=== PATIENT | male | born 1960 | race American Indian/Alaskan Native ===

== ENCOUNTER 2021-08-13 11:07 | Inpatient (IN) | payer SELFPAY ==
[2021-08-13] MEDS ORDERED: dilTIAZem 25 MG/5 ML INJ IV ONE (11:35)
--- NOTE | 2021-08-13 11:45 | Emergency Department Report ---
ED Palpitations HPI - General Chief Complaint: Arrhythmia/Palpitations Stated Complaint: AFIB Time Seen by Provider: 08/13/21 11:24 Source: patient Mode of arrival: Ambulatory Limitations: No Limitations - History of Present Illness Initial Comments: 61-year-old male with history of hypertension who presented with palpitation associated with shortness of breath that been intermittent for the last 1 week. Patient has history of hypertension and currently taking his medication faithfully. Patient denies any chest pain. No cough, fever or chills reported. Walking from one room to the other worsening pain. Patient denies any heat or cold intolerance. Patient also mentioned that is a survivor of non-Hodgkin's lymphoma. No other modifying or associated factors reported. - Related Data Home Medications Medication Instructions Recorded Confirmed Last Taken amLODIPine [Norvasc] 10 mg PO DAILY 08/13/21 08/13/21 08/13/21 Allergies Allergy/AdvReac Type Severity Reaction Status Date / Time No Known Allergies Allergy Unverified 08/13/21 11:16 ED Review of Systems ROS: Stated complaint: AFIB Other details as noted in HPI Comment: All other systems reviewed and negative Cardiovascular: palpitations, dyspnea on exertion. denies: chest pain, syncope Endocrine: denies: excessive sweating, flushing, intolerance to cold, intolerance to heat Psychiatric: denies: anxiety ED Past Medical Hx - Past Medical History Previous Medical History?: Yes Hx Hypertension: Yes Hx of Cancer: Yes ([id number] Lymphoma) Additional medical history: sarcoidosis - Surgical History Past Surgical History?: Yes Additional Surgical History: L chest port - Medications Home Medications: Home Medications Medication Instructions Recorded Confirmed Last Taken Type amLODIPine [Norvasc] 10 mg PO DAILY 08/13/21 08/13/21 08/13/21 History ED Physical Exam - General Limitations: No Limitations General appearance: alert, in no apparent distress - Head Head exam: Present: normal inspection - Eye Eye exam: Present: normal appearance Pupils: Present: normal accommodation - ENT ENT exam: Present: normal exam, normal orophraynx, mucous membranes moist - Neck Neck exam: Present: normal inspection, full ROM. Absent: tenderness - Respiratory Respiratory exam: Present: normal lung sounds bilaterally. Absent: respiratory distress - Cardiovascular Cardiovascular Exam: Present: tachycardia, irregular rhythm - GI/Abdominal GI/Abdominal exam: Present: soft, normal bowel sounds. Absent: distended, tenderness - Extremities Exam Extremities exam: Present: normal inspection, full ROM, normal capillary refill. Absent: tenderness - Back Exam Back exam: Present: normal inspection, full ROM - Neurological Exam Neurological exam: Present: alert, oriented X3. Absent: altered - Psychiatric Psychiatric exam: Present: normal affect, normal mood - Skin Skin exam: Present: warm, intact, normal color. Absent: rash ED Course Vital Signs 08/13/21 08/13/21 08/13/21 11:13 11:37 11:42 Temperature 98.3 F Pulse Rate 87 129 H 153 H Respiratory 18 24 Rate Blood Pressure 129/86 Blood Pressure 113/74 [Right] O2 Sat by Pulse 88 96 Oximetry 08/13/21 08/13/21 08/13/21 11:46 11:58 12:00 Temperature Pulse Rate 129 H 108 H Respiratory 22 22 16 Rate Blood Pressure 129/86 120/74 Blood Pressure [Right] O2 Sat by Pulse 95 96 97 Oximetry 08/13/21 08/13/21 08/13/21 12:16 12:30 12:46 Temperature Pulse Rate 112 H 126 H 132 H Respiratory 21 26 H 16 Rate Blood Pressure 133/84 129/88 120/92 Blood Pressure [Right] O2 Sat by Pulse 95 92 92 Oximetry 08/13/21 08/13/21 08/13/21 13:00 13:16 13:30 Temperature Pulse Rate 138 H 125 H 110 H Respiratory 23 22 16 Rate Blood Pressure 124/91 124/91 117/91 Blood Pressure [Right] O2 Sat by Pulse 94 95 94 Oximetry - Reevaluation(s) Reevaluation #1: 08/13/21 11:43 Patient here with palpitation and noted to be in A. fib that is likely been going on intermittently for about a week. We will go ahead and tried nonpharmacological means such as Valsalva. With no success we will go ahead and give Cardizem 20 mg bolus and started drip to stabilize the heart rate. Will order routine cardiac labs including troponin, chest x-ray, CBC, CMP, and UA for any infectious process or electrolyte abnormality. We will also order thyroid profile. Patient given IV fluids 1 L bolus for hydration. Reevaluation #2: 08/13/21 11:46 Continue dialysis new atrial fibrillation for this patient and unsure how long this has been going on we will have this patient considered for admission for further complete work-up and further evaluation and treatment. 08/13/21 12:57 Patient heart rate got better with bolus of Cardizem and the drip is now running in the low 112 teens--I consulted [facility] and spoke with Fadi who suggested admitting patient to hospitalist and have them consulted. I did call Dr. Burns who accepts patient for further evaluation and treatment. ED Medical Decision Making - Lab Data Result diagrams: 08/13/21 11:45 08/13/21 11:45 - EKG Data -: EKG Interpreted by Me Rate: tachycardia - EKG Data Interpretation: nonspecific ST-T wave darryl, other (Atrial fibrillation at a rate of 135 bpm) - Medical Decision Making Atrial fibrillation see progress note for details - Differential Diagnosis Cardiac arrhythmia, hyperthyroidism, hypothyroidism Critical Care Time: Yes (30) Critical care time in (mins) excluding proc time.: 60 Critical care attestation.: If time is entered above; I have spent that time in minutes in the direct care of this critically ill patient, excluding procedure time. This patient came with arrhythmia noted to be in A. fib and was given Cardizem 20 mg and started on Cardizem IV piggyback drip and see progress note for details Critical Care Time: 60 ED Disposition Clinical Impression: Atrial fibrillation Qualifiers: Atrial fibrillation type: unspecified Qualified Code(s): I48.91 - Unspecified atrial fibrillation Disposition: 09 ADMITTED INPATIENT Is pt being admited?: Yes Does the pt Need Aspirin: No Condition: Stable
[2021-08-13] MEDS: dilTIAZem/D5W 100 MG/100 ML BAG IV SCH ×2 (11:46→17:35)
--- NOTE | 2021-08-13 12:18 | XRay Report ---
CHEST 1 VIEW INDICATION: a-fib. COMPARISON: None FINDINGS: Support devices: A left IJ [id number] terminates in the left brachiocephalic vein. Heart: Borderline to mild cardiomegaly Lungs/Pleura: Mild pulmonary venous congestion is suspected. Small right pleural effusion is identifi ed. No pneumothorax. Additional findings: None. IMPRESSION: Mild CHF is suspected. Signer Name: Curly Liz Jr, MD Signed: 08/13/2021 12:14 PM Workstation Name: [id number]
[2021-08-13 12:40] LABS: Alanine Aminotransferase 24 units/L (7-56); Albumin 4.1 g/dL (3.9-5); BUN/Creatinine Ratio 17; Blood Urea Nitrogen 15 mg/dL (9-20); Calcium 8.4 mg/dL (8.4-10.2); Hemolysis Index 55
--- NOTE | 2021-08-13 12:57 | History and Physical Report ---
History of Present Illness Chief complaint: My heart is beating fast and is hard to breathe History of present illness: 61 YO Male with HTN, NHL, Sarcoidosis, Obesity Hypoventilation Syndrome presents to ED for evaluation. Patient reports "it is hard to breathe and my heart is beating fast". Patient states that he has experienced the aforementioned symptoms over the past 1 week with worsening symptoms over the past 3 days. Patient acknowledges chest palpitations, shortness of breath, decreased exercise tolerance, dyspnea on exertion as well as dyspnea at rest. Patient transported to [facility] via private vehicle for further care and evaluation of the aforementioned symptoms. The patient was seen and evaluated in the emergency department. All lab and imaging studies reviewed. Patient found to have new onset atrial fibrillation on EKG with rapid ventricular response as well as clinical symptoms consistent with CHF decompensation. Patient admitted to telemetry due to increased risk of worsening symptoms. Cardiology team consulted in ED. Patient initiated on therapeutic anticoagulation in the emergency department. Patient denies fever, chills, chest pain, productive cough, skin rash, recent contact, known exposure to COVID-19. No prior admission for review. No medication listed at time of admission for reconciliation. Advanced care planning conducted in ED. Past History Past Medical History: cancer, hypertension, other (See HPI) Past Surgical History: No surgical history, Other (Reviewed) Social history: . denies: smoking, alcohol abuse, prescription drug abuse Family history: hypertension Medications and Allergies Allergies Allergy/AdvReac Type Severity Reaction Status Date / Time No Known Allergies Allergy Unverified 08/13/21 11:16 Home Medications Medication Instructions Recorded Confirmed Last Taken Type amLODIPine [Norvasc] 10 mg PO DAILY 08/13/21 08/13/21 08/13/21 History Active Meds: Active Medications Diltiazem HCl (Cardizem/D5w 100mg/100ml) 100 mg in 100 mls @ 5 mls/hr IV TITR AMMY; Protocol Last Titration: 08/13/21 12:35 Dose: 15 mg/hr, 15 mls/hr Review of Systems Constitutional: no weight loss, no weight gain, no fever, no chills Ears, nose, mouth and throat: no ear pain, no ear discharge, no decreased hearing, no nasal discharge Cardiovascular: palpitations, rapid/irregular heart beat, shortness of breath, dyspnea on exertion, decreased exercise tolerance Respiratory: no cough, no cough with sputum, no excessive sputum Gastrointestinal: no abdominal pain, no nausea, no vomiting, no diarrhea, no constipation Genitourinary Male: no hematuria, no flank pain, no discharge, no urinary frequency, no urinary hesitancy Rectal: no pain, no incontinence, no bleeding Musculoskeletal: no neck stiffness, no neck pain, no arm numbness/tingling, no low back pain Integumentary: no rash, no pruritis, no sores, no jaundice Neurological: no head injury, no transient paralysis, no parathesias, no numbness, no tingling, no syncope Psychiatric: no anxiety, no memory loss, no sleep disturbances, no hypersomnia, no change in appetite, no change in libido, no suicidal ideation Endocrine: no cold intolerance, no excessive thirst, no polyuria, no nocturia Hematologic/Lymphatic: no easy bruising, no easy bleeding Allergic/Immunologic: no urticaria, no allergic rhinitis, no wheezing Exam - Constitutional Vitals: Temp Pulse Resp BP Pulse Ox 98.3 F 126 H 26 H 129/88 92 08/13/21 11:13 08/13/21 12:30 08/13/21 12:30 08/13/21 12:30 08/13/21 12:30 General appearance: Present: mild distress, obese - EENT Eyes: Present: PERRL ENT: hearing intact, clear oral mucosa - Neck Neck: Present: supple, normal ROM - Respiratory Respiratory effort: normal Respiratory: bilateral: CTA - Cardiovascular Rhythm: irregularly irregular Heart Sounds: Present: S1 & S2. Absent: rub, click - Extremities Extremities: pulses symmetrical, No edema Peripheral Pulses: within normal limits - Abdominal General gastrointestinal: Present: soft, non-tender, non-distended, normal bowel sounds Male genitourinary: Present: normal - Integumentary Integumentary: Present: clear, warm, dry - Musculoskeletal Musculoskeletal: gait normal, strength equal bilaterally - Psychiatric Psychiatric: appropriate mood/affect, intact judgment & insight - Neurologic Neurologic: CNII-XII intact, moves all extremities HEART Score - HEART Score Troponin: Troponin T < 0.010 ng/mL (0.00-0.029) 08/13/21 11:45 Results - Labs CBC & Chem 7: 08/13/21 13:47 08/13/21 13:47 Assessment and Plan - Patient Problems (1) CHF (congestive heart failure) Current Visit: Yes Status: Acute Qualifiers: Heart failure type: systolic Heart failure chronicity: acute Qualified Code(s): I50.21 - Acute systolic (congestive) heart failure Plan to address problem: Strict I's/O, monitor urine output every shift, daily weight, afterload reduction, blood pressure control, cardiology team consulted in ED, thyroid panel, magnesium level, BNP, echocardiogram ordered and pending at time of admission. (2) Atrial fibrillation with RVR Current Visit: Yes Status: Acute Plan to address problem: Rate control, therapeutic anticoagulation, cardiology team consulted. (3) Hypertension Current Visit: Yes Status: Acute Qualifiers: Hypertension type: primary hypertension Qualified Code(s): I10 - Essential (primary) hypertension Plan to address problem: Monitor blood pressure every shift, continue medical management. (4) Sarcoidosis Current Visit: Yes Status: Acute Plan to address problem: Outpatient rheumatology follow-up, supportive care. (5) Non Hodgkin's lymphoma Current Visit: Yes Status: Acute Plan to address problem: No acute exacerbation at this time. Outpatient oncology follow-up. (6) Obesity hypoventilation syndrome Current Visit: Yes Status: Acute Plan to address problem: Balanced diet, increase physical activity discharge, outpatient pulmonary follow-up for sleep study. (7) DVT prophylaxis Current Visit: Yes Status: Acute Plan to address problem: SCD to bilateral lower extremities while in bed, continue therapeutic anticoagulation. (8) Advance care planning Current Visit: Yes Status: Acute Plan to address problem: Disease education done, care plan discussed, diagnoses discussed, prognosis discussed, patient is full code. Patient knowledges understanding and agreement with care plan, +30 minutes.
[2021-08-13] MEDS ORDERED: HEPARIN 10,000 UNITS/10 ML VIAL IV PRN (13:01)
[2021-08-13 14:14] LABS: Basophils % (Auto) 0.8 % (0.0-1.8); Eosinophils # (Auto) 0.1 K/mm3 (0.0-0.4); Eosinophils % (Auto) 2.6 % (0.0-4.3); Hematocrit 43.3 % (35.5-45.6); Lymphocytes # (Auto) 0.8 K/mm3 (1.2-5.4); Lymphocytes % (Auto) 21.2 % (13.4-35.0); Mean Corpuscular HGB Conc 32 % (32-34); Mean Corpuscular Volume 86 fl (84-94); Monocytes # (Auto) 0.4 K/mm3 (0.0-0.8); Monocytes % (Auto) 10.2 % (0.0-7.3); Platelet Count 162 K/mm3 (140-440); Red Blood Count 5.02 M/mm3 (3.65-5.03); Red Cell Distribution Width 15.7 % (13.2-15.2)
[2021-08-13 14:28] LABS: INR 1.03 (0.87-1.13); Partial Thromboplastin Time 29.4 Sec. (24.2-36.6)
[2021-08-13 14:29] LABS: INR 1.05 (0.87-1.13); Partial Thromboplastin Time 29.8 Sec. (24.2-36.6)
[2021-08-13] MEDS ORDERED: APIXABAN 5 MG TAB PO SCH (15:00)
[2021-08-13] MEDS: ENOXAPARIN 100 MG/1 ML INJ SUB-Q SCH ×2 (15:53→22:47)
--- NOTE | 2021-08-13 16:22 | Consultation ---
History of Present Illness Consult date: 08/13/21 Requesting physician: ZHANNA PARISI History of present illness: Patient is a 61-year-old male with past medical history of hypertension, sleep apnea, history of sarcoidosis, and history of B-cell lymphoma s/p chemo presents to the ED 2 5 with a complaint of shortness of breath which has been occurring since February however for the last month and a half patient reports that his symptoms have progressively worsened. Patient's daughter is at bedside who confirms that she has noticed that patient's respiratory status has worsened since February. Both patient and daughter confirm that over the last month they have noticed that patient has become more dyspneic on exertion. Patient also reports orthopnea, dyspnea on exertion, and bilateral lower extremity edema. In the ED patient was found to be in A. fib with RVR with rate into the 130s. Patient was started on Cardizem drip. Patient denies any complaints of chest pain, palpitations, nausea, vomiting, lightheadedness, or diaphoresis. Patient is previously unknown to our practice. Cardiology is consulted for A. fib with RVR. Past History Past Medical History: cancer, hypertension, sarcoidosis Past Surgical History: Other (Patient reports brain surgery to relieve pressure) Social history: smoking (Former smoker) Family history: cancer, diabetes Medications and Allergies Allergies Allergy/AdvReac Type Severity Reaction Status Date / Time No Known Allergies Allergy Unverified 08/13/21 11:16 Home Medications Medication Instructions Recorded Confirmed Last Taken Type amLODIPine [Norvasc] 10 mg PO DAILY 08/13/21 08/13/21 08/13/21 History Active Meds: Active Medications Enoxaparin Sodium (Enoxaparin 100 Mg/1 Ml Inj) 100 mg SUB-Q BID AMMY; Protocol Last Admin: 08/13/21 15:53 Dose: 100 mg Diltiazem HCl (Cardizem/D5w 100mg/100ml) 100 mg in 100 mls @ 5 mls/hr IV TITR AMMY; Protocol Last Titration: 08/13/21 12:35 Dose: 15 mg/hr, 15 mls/hr Review of Systems Constitutional: no weight loss, no weight gain, no fever, no chills Ears, nose, mouth and throat: no nasal congestion, no nasal discharge, no sinus pressure, no sinus pain Cardiovascular: orthopnea, edema, shortness of breath, dyspnea on exertion, no chest pain, no palpitations Respiratory: shortness of breath, dyspnea on exertion, no cough, no cough with sputum Gastrointestinal: no abdominal pain, no nausea, no vomiting, no diarrhea Musculoskeletal: no neck pain, no leg numbness/tingling, no redness of joints Integumentary: no rash, no pruritis, no redness Neurological: no head injury, no transient paralysis Psychiatric: no anxiety, no memory loss Endocrine: no cold intolerance, no heat intolerance Hematologic/Lymphatic: no easy bruising, no easy bleeding Physical Examination Vital Signs Temp Pulse Resp BP Pulse Ox 98.3 F 87 18 113/74 88 08/13/21 11:13 08/13/21 11:13 08/13/21 11:13 08/13/21 11:13 08/13/21 11:13 General appearance: no acute distress HEENT: Positive: Normocephaly Neck: Positive: trachea midline Cardiac: Positive: irregularly irregular Lungs: Positive: Rales, Other Neuro: Positive: Grossly Intact Abdomen: Positive: Soft Skin: Negative: Rash, Suspicious Lesions, Ulceration Extremities: Present: upper extr. pulses, edema Results 08/13/21 13:47 08/13/21 13:47 Cardiac Enzymes 08/13/21 Range/Units 11:45 AST 30 (5-40) units/L Coagulation 08/13/21 08/13/21 Range/Units 13:47 13:47 PT 14.7 14.9 (12.2-14.9) Sec. INR 1.03 1.05 (0.87-1.13) APTT 29.4 29.8 (24.2-36.6) Sec. CBC 08/13/21 08/13/21 Range/Units 11:45 13:47 WBC 3.8 L (4.5-11.0) K/mm3 RBC 5.02 (3.65-5.03) M/mm3 Hgb 14.0 (11.8-15.2) gm/dl Hct 43.3 (35.5-45.6) % Plt Count Not Reportable 162 Lymph # (Auto) 0.8 L (1.2-5.4) K/mm3 [place] # (Auto) 0.4 (0.0-0.8) K/mm3 Eos # (Auto) 0.1 (0.0-0.4) K/mm3 Baso # (Auto) 0.0 (0.0-0.1) K/mm3 Comprehensive Metabolic Panel 08/13/21 08/13/21 Range/Units 11:45 13:47 Sodium 141 (137-145) mmol/L Potassium 3.8 (3.6-5.0) mmol/L Chloride 99.5 (98-107) mmol/L Carbon Dioxide 31 H (22-30) mmol/L BUN 15 (9-20) mg/dL Creatinine 0.9 0.9 (0.8-1.3) mg/dL Glucose 118 H (75-100) mg/dL Calcium 8.4 (8.4-10.2) mg/dL AST 30 (5-40) units/L ALT 24 (7-56) units/L Alkaline Phosphatase 89 (35-129) units/L Total Protein 6.5 (6.3-8.2) g/dL Albumin 4.1 (3.9-5) g/dL - Imaging and Cardiology Echo: pending EKG interpretations - Telemetry EKG Rhythm: Atrial Fibrillation - EKG Supraventricular dysrhythmia: atrial fibrillation Assessment and Plan Patient is a 61-year-old male with past medical history of hypertension and B- cell lymphoma presents to the ED today with a complaint of shortness of breath which has been occurring since February however for the last month and a half patient reports that his symptoms have progressively worsened and found to be in A. fib with RVR New onset A. fib with RVR Acute respiratory failure-currently on nasal cannula Hypertension History of B-cell lymphoma History of sarcoidosis Plan: EKG shows A. fib with RVR no acute ischemic changes. Troponin negative x1. Patient denies any complaint of chest pain nausea, vomiting or diaphoresis Agree with Cardizem drip for rate control Anticoagulate with Lovenox BNP noted to be elevated, chest x-ray shows mild CHF, patient reports orthopnea, and patient has bilateral lower extremity edema. Will initiate light diuresis with Lasix 20 mg IV twice daily. Repeat BMP in the a.m. strict I's and O's Echo pending Discussed with patient and patient's daughter plan of care. Both patient and daughter verbalized understanding acknowledgment Patient conjunction with Dr. Joe who agrees with this plan of care - Patient Problems (1) Hypertension Current Visit: Yes Status: Acute (2) CHF (congestive heart failure) Current Visit: Yes Status: Acute (3) Atrial fibrillation Current Visit: No Status: Acute Qualifiers: Atrial fibrillation type: unspecified Qualified Code(s): I48.91 - Unspecified atrial fibrillation
[2021-08-13] MEDS ORDERED: ACETAMINOPHEN 325 MG TAB PO PRN (17:29)
[2021-08-13] MEDS ORDERED: HYDROmorphone 1 MG/1 ML INJ IV PRN (17:29)
[2021-08-13] MEDS ORDERED: ONDANSETRON 4 MG/2 ML INJ IV PRN (17:29)
[2021-08-13] MEDS ORDERED: ALBUTEROL 2.5 MG/3 ML NEBU IH PRN (17:29)
[2021-08-13] MEDS ORDERED: oxyCODONE /ACETAMINOPHEN 5-325MG TAB PO PRN (17:29)
[2021-08-13] MEDS: FUROSEMIDE 20 MG/2 ML INJ IV SCH (17:31)
[2021-08-13] MEDS: AMIODARONE 900 MG in DEXTROSE 5% IN WATER 482 ML IV SCH (18:54)
[2021-08-13 20:16] LABS: Bacteria,Urine 1+ /HPF (Negative); Bilirubin,Urine NEG (Negative); Blood,Urine SM (Negative); Color,Urine Straw (Yellow); Protein,Urine <15 mg/dL mg/dL (Negative); Urobilinogen,Urine < 2.0 mg/dL (<2.0); WBC,Urine < 1.0 /HPF (0.0-6.0)
[2021-08-13] MEDS: FAMOTIDINE 20 MG TAB PO SCH (22:59)
[2021-08-14] MEDS: FUROSEMIDE 20 MG/2 ML INJ IV SCH ×3 (00:13→21:32)
[2021-08-14 05:49] LABS: BUN/Creatinine Ratio 14; Blood Urea Nitrogen 14 mg/dL (9-20); Calcium 8.6 mg/dL (8.4-10.2); Hemolysis Index 19
--- NOTE | 2021-08-14 09:22 | Progress Note ---
Assessment and Plan Assessment and plan: 61 YO Male with HTN, NHL, Sarcoidosis, Obesity Hypoventilation Syndrome presents to ED for evaluation. Patient reports "it is hard to breathe and my heart is beating fast" progressively worse since weeks. Patient acknowledges shortness of breath, decreased exercise tolerance, dyspnea on exertion as well as dyspnea at rest. The patient was seen and evaluated in the emergency department. Patient found to have new onset atrial fibrillation on EKG with rapid ventricular response as well as clinical symptoms consistent with CHF decompensation. Cardiology team consulted in ED. Patient initiated on therapeutic anticoagulation in the emergency department. Patient denies fever, chills, chest pain, productive cough, skin rash, recent contact, known exposure to COVID-19. No prior admission for review. (1) acute systolic CHF (congestive heart failure) Current Visit: Yes Status: Acute Qualifiers: Heart failure type: systolic Heart failure chronicity: acute Qualified Code(s): I50.21 - Acute systolic (congestive) heart failure Plan to address problem: BNP 1153 and chest x-ray suggestive of CHF. Strict I's/O, monitor urine output every shift, daily weight, afterload reduction, blood pressure control, cardiology team consulted in ED, thyroid panel, magnesium level, BNP, echocardiogram ordered and pending at time of admission. Cardiology evaluation is in progress. On IV Lasix and CHF regimen as per cardiology. Echo 08/13/2021-EF 20 to 25%. LV severely dilated. Moderate to severe concentric LVH. Left atrium severely dilated. Right ventricular systolic function is normal (2) Atrial fibrillation with RVR Current Visit: Yes Status: Acute Plan to address problem: Rate control, therapeutic anticoagulation, cardiology team consulted. Patient has been compliant with Cardizem and atenolol. (3) Hypertension Current Visit: Yes Status: Acute Qualifiers: Hypertension type: primary hypertension Qualified Code(s): I10 - Essential (primary) hypertension Plan to address problem: Monitor blood pressure every shift, continue medical management. (4) remote history of sarcoidosis Current Visit: Yes Status: Acute Plan to address problem: Not active since years per patient. Outpatient rheumatology follow-up, supportive care. (5) Non Hodgkin's lymphoma Current Visit: Yes Status: Acute Plan to address problem: No acute exacerbation at this time. Outpatient oncology follow-up. (6) morbid obesity at high risk for JEFFREY Current Visit: Yes Status: Acute Plan to address problem: Balanced diet, increase physical activity discharge, outpatient pulmonary follow-up for sleep study. (7) DVT prophylaxis Current Visit: Yes Status: Acute Plan to address problem: SCD to bilateral lower extremities while in bed, continue therapeutic anticoag ulation. (8) Advance care planning Current Visit: Yes Status: Acute Plan to address problem: Disease education done, care plan discussed, diagnoses discussed, prognosis discussed, patient is full code. Patient knowledges understanding and agreement with care plan, +30 minutes. Discussed with the patient History Interval history: Patient is alert and oriented and not in acute distress currently. A. fib/RVR being controlled with the Cardizem and amiodarone by cardiology. Patient reports breathing better since admitted. Not aware of palpitations. No chest pains. No fever or chills. No significant leg edema. He appears to be at risk for JEFFREY which was not screened for. Hospitalist Physical - Constitutional Vitals: Temp Pulse Resp BP Pulse Ox 98.4 F 77 19 154/124 99 08/14/21 08:14 08/14/21 08:14 08/14/21 08:14 08/14/21 08:14 08/14/21 08:25 General appearance: Present: mild distress, obese (Morbidly obese) - EENT Eyes: Present: PERRL, EOM intact ENT: clear oral mucosa - Neck Neck: Present: supple, other (No JVD.) - Respiratory Respiratory effort: normal Respiratory: bilateral: rales - Cardiovascular Rhythm: irregularly irregular - Extremities Extremities: No edema - Abdominal General gastrointestinal: soft, non-tender, other (Obese and protuberant) - Integumentary Integumentary: Absent: rash - Psychiatric Psychiatric: appropriate mood/affect - Neurologic Neurologic: no focal deficits, moves all extremities HEART Score - HEART Score Troponin: Troponin T < 0.010 ng/mL (0.00-0.029) 08/13/21 11:45 Results - Labs CBC & Chem 7: 08/13/21 13:47 08/14/21 05:17 Labs: Laboratory Last Values WBC 3.8 K/mm3 (4.5-11.0) L 08/13/21 13:47 RBC 5.02 M/mm3 (3.65-5.03) 08/13/21 13:47 Hgb 14.0 gm/dl (11.8-15.2) 08/13/21 13:47 Hct 43.3 % (35.5-45.6) 08/13/21 13:47 MCV 86 fl (84-94) 08/13/21 13:47 MCH 28 pg (28-32) 08/13/21 13:47 MCHC 32 % (32-34) 08/13/21 13:47 RDW 15.7 % (13.2-15.2) H 08/13/21 13:47 Plt Count 162 K/mm3 (140-440) 08/13/21 13:47 Lymph % (Auto) 21.2 % (13.4-35.0) 08/13/21 13:47 [place] % (Auto) 10.2 % (0.0-7.3) H 08/13/21 13:47 Eos % (Auto) 2.6 % (0.0-4.3) 08/13/21 13:47 Baso % (Auto) 0.8 % (0.0-1.8) 08/13/21 13:47 Lymph # (Auto) 0.8 K/mm3 (1.2-5.4) L 08/13/21 13:47 [place] # (Auto) 0.4 K/mm3 (0.0-0.8) 08/13/21 13:47 Eos # (Auto) 0.1 K/mm3 (0.0-0.4) 08/13/21 13:47 Baso # (Auto) 0.0 K/mm3 (0.0-0.1) 08/13/21 13:47 Seg Neutrophils % 65.2 % (40.0-70.0) 08/13/21 13:47 Seg Neutrophils # 2.5 K/mm3 (1.8-7.7) 08/13/21 13:47 PT 14.7 Sec. (12.2-14.9) 08/13/21 13:47 PT 14.9 Sec. (12.2-14.9) 08/13/21 13:47 INR 1.03 (0.87-1.13) 08/13/21 13:47 INR 1.05 (0.87-1.13) 08/13/21 13:47 APTT 29.4 Sec. (24.2-36.6) 08/13/21 13:47 APTT 29.8 Sec. (24.2-36.6) 08/13/21 13:47 Sodium 144 mmol/L (137-145) 08/14/21 05:17 Potassium 3.9 mmol/L (3.6-5.0) 08/14/21 05:17 Chloride 100.3 mmol/L (98-107) 08/14/21 05:17 Carbon Dioxide 34 mmol/L (22-30) H 08/14/21 05:17 Anion Gap 14 mmol/L 08/14/21 05:17 BUN 14 mg/dL (9-20) 08/14/21 05:17 Creatinine 1.0 mg/dL (0.8-1.3) 08/14/21 05:17 Estimated GFR > 60 ml/min 08/14/21 05:17 BUN/Creatinine Ratio 14 % 08/14/21 05:17 Glucose 138 mg/dL (75-100) H 08/14/21 05:17 Calcium 8.6 mg/dL (8.4-10.2) 08/14/21 05:17 Magnesium 2.20 mg/dL (1.7-2.3) 08/13/21 15:58 Total Bilirubin 1.10 mg/dL (0.1-1.2) 08/13/21 11:45 AST 30 units/L (5-40) 08/13/21 11:45 ALT 24 units/L (7-56) 08/13/21 11:45 Alkaline Phosphatase 89 units/L (35-129) 08/13/21 11:45 Troponin T < 0.010 ng/mL (0.00-0.029) 08/13/21 11:45 NT-Pro-B Natriuret Pep 1153 pg/mL (0-900) H 08/13/21 11:45 Total Protein 6.5 g/dL (6.3-8.2) 08/13/21 11:45 Albumin 4.1 g/dL (3.9-5) 08/13/21 11:45 Albumin/Globulin Ratio 1.7 % 08/13/21 11:45 TSH 0.805 mlU/mL (0.270-4.200) 08/13/21 11:45 Urine Color Straw (Yellow) 08/13/21 19:05 Urine Turbidity Clear (Clear) 08/13/21 19:05 Urine pH 5.0 (5.0-7.0) 08/13/21 19:05 Ur Specific [place] 1.005 (1.003-1.030) 08/13/21 19:05 Urine Protein <15 mg/dl mg/dL (Negative) 08/13/21 19:05 Urine Glucose (UA) Neg mg/dL (Negative) 08/13/21 19:05 Urine Ketones Neg mg/dL (Negative) 08/13/21 19:05 Urine Blood Sm (Negative) 08/13/21 19:05 Urine Nitrite Neg (Negative) 08/13/21 19:05 Urine Bilirubin Neg (Negative) 08/13/21 19:05 Urine Urobilinogen < 2.0 mg/dL (<2.0) 08/13/21 19:05 Ur Leukocyte Esterase Neg (Negative) 08/13/21 19:05 Urine WBC (Auto) < 1.0 /HPF (0.0-6.0) 08/13/21 19:05 Urine RBC (Auto) 1.0 /HPF (0.0-6.0) 08/13/21 19:05 Urine Bacteria (Auto) 1+ /HPF (Negative) 08/13/21 19:05 Patrick/IV: Voiding Method Urinal Active Medications - Current Medications Current Medications: Generic Name Dose Route Start Last Admin Trade Name Freq PRN Reason Stop Dose Admin Acetaminophen 650 mg 08/13/21 17:29 Acetaminophen 325 Mg Tab PO Q4H PRN Pain MILD(1-3)/Fever >100.5/PARIKH Albuterol 2.5 mg 08/13/21 17:29 Albuterol 2.5 Mg/3 Ml Nebu IH Q4HRT PRN Shortness Of Breath Amlodipine Besylate 10 mg 08/14/21 10:00 Amlodipine 10 Mg Tab PO DAILY [facility] Enoxaparin Sodium 100 mg 08/13/21 16:00 08/13/21 22:47 Enoxaparin 100 Mg/1 Ml Inj SUB-Q Not Given BID [facility] Protocol Famotidine 20 mg 08/13/21 22:00 08/13/21 22:59 Famotidine 20 Mg Tab PO 20 mg BID [facility]MY Administration Furosemide 20 mg 08/13/21 17:00 08/14/21 00:13 Furosemide 20 Mg/2 Ml Inj IV Not Given BID [facility] Amiodarone HCl 900 mg/ 500 mls @ 33.333 mls/hr 08/13/21 19:00 08/14/21 03:15 Dextrose IV 0.5 mg/min DIRECT [facility]MY 16.667 mls/hr Titration Protocol 1 MG/MIN Ondansetron HCl 4 mg 08/13/21 17:29 Ondansetron 4 Mg/2 Ml Inj IV Q8H PRN Nausea And Vomiting Sodium Chloride 10 ml 08/13/21 22:00 08/13/21 22:59 Sodium Chloride 0.9% 10 Ml Flush Syringe IV 10 ml BID AMMY Administration Sodium Chloride 10 ml 08/13/21 17:29 Sodium Chloride 0.9% 10 Ml Flush Syringe IV PRN PRN LINE FLUSH
[2021-08-14] MEDS: ENOXAPARIN 100 MG/1 ML INJ SUB-Q SCH ×2 (11:23→21:32)
[2021-08-14] MEDS: FAMOTIDINE 20 MG TAB PO SCH ×2 (11:24→21:32)
[2021-08-14] MEDS: amLODIPine 10 MG TAB PO SCH (11:24)
[2021-08-14] MEDS ORDERED: AMIODARONE 150 MG in DEXTROSE 5% IN WATER 97 ML IV ONE (13:30)
[2021-08-14] MEDS: AMIODARONE 900 MG in DEXTROSE 5% IN WATER 482 ML IV SCH (13:44)
[2021-08-14] MEDS: METOPROLOL TARTRATE 25 MG TAB PO SCH ×2 (13:44→21:32)
--- NOTE | 2021-08-14 15:54 | Progress Note ---
Assessment and Plan Patient is a 61-year-old male with past medical history of hypertension and B- cell lymphoma presents to the ED today with a complaint of shortness of breath which has been occurring since February however for the last month and a half patient reports that his symptoms have progressively worsened and found to be in A. fib with RVR New onset A. fib with RVR Acute respiratory failure-currently on nasal cannula HFrEF Cardiomyopathy Hypertension History of B-cell lymphoma History of sarcoidosis Echo 08/13/2021-EF 20 to 25%. LV severely dilated. Moderate to severe concentric LVH. Left atrium severely dilated. Right ventricular systolic function is normal Plan: Patient remains chest pain-free Hospitalist converted patient to amiodarone drip yesterday evening. Patient remains in A. fib with RVR will initiate amiodarone bolus. Will also initiate metoprolol 25 mg p.o. 3 times daily Anticoagulated with Lovenox Continue light diuresis with Lasix 20 mg IV twice daily. Repeat BMP in the a.m. strict I's and O's Per conversation with patient patient reports that he recently had a long car ride while driving down to [place]. Will order Doppler studies to rule out DVT Spoke with hospitalist who wished to rule out DVT before ordering V/Q or CTA chest We will hold initiation of MANISH or ARB due to unclear blood pressure readings and new addition of metoprolol. Will add MANISH and ARB once BP and rate is controlled Due to newly diagnosed cardiomyopathy will eventually plan for ischemic eval on ce patient is rate controlled Patient conjunction with Dr. Joe who agrees with this plan of care - Patient Problems (1) Hypertension Current Visit: Yes Status: Acute (2) CHF (congestive heart failure) Current Visit: Yes Status: Acute Qualifiers: Heart failure type: systolic Heart failure chronicity: acute Qualified Code(s): I50.21 - Acute systolic (congestive) heart failure (3) Atrial fibrillation Current Visit: No Status: Inactive Qualifiers: Atrial fibrillation type: unspecified Qualified Code(s): I48.91 - Unspecified atrial fibrillation Subjective Date of service: 08/14/21 Principal diagnosis: A. fib with RVR Interval history: Patient resting in bed in no acute distress. Patient reports slight improvement in respiratory status Patient is a A. fib with RVR on monitor rate anywhere from 90s to 120s Objective Vital Signs Temp Pulse Pulse Resp BP BP Pulse Ox 08/14/21 12:04 114 H 22 94 08/14/21 12:00 98.0 F 78 18 133/82 90 08/14/21 08:25 99 08/14/21 08:14 98.4 F 77 19 154/124 97 08/14/21 07:30 83 L 08/14/21 07:05 114 H 08/14/21 04:10 98.2 F 71 18 135/103 93 08/14/21 02:20 121 H 08/14/21 00:39 69 17 94 08/14/21 00:26 98.5 F 65 16 118/70 87 08/13/21 22:05 98.2 F 69 20 111/77 93 08/13/21 21:15 99 H 18 123/76 97 08/13/21 21:01 99 H 11 L 123/76 94 08/13/21 20:45 119 H 23 112/72 93 08/13/21 20:31 128 H 19 112/72 95 08/13/21 20:15 92 H 22 131/91 96 08/13/21 20:01 103 H 18 131/91 95 08/13/21 19:45 91 H 19 125/87 100 08/13/21 19:31 92 H 17 125/87 98 08/13/21 19:19 94 08/13/21 19:15 105 H 19 132/84 97 08/13/21 19:01 132/84 94 08/13/21 18:45 92 H 19 121/78 96 08/13/21 18:31 104 H 19 121/87 96 08/13/21 18:15 87 18 125/82 96 08/13/21 18:01 97 H 20 124/90 97 08/13/21 17:47 92 08/13/21 17:30 135 H 20 130/78 08/13/21 16:46 113 H 27 H 139/87 91 08/13/21 16:30 117 H 19 118/85 91 08/13/21 16:16 106 H 25 H 110/84 92 08/13/21 16:00 77 23 110/84 96 - Physical Examination General: No Apparent Distress HEENT: Positive: Normocephaly Neck: Positive: trachea midline Cardiac: Positive: irregularly irregular, Tachycardia Lungs: Positive: Rales Neuro: Positive: Grossly Intact Abdomen: Positive: Soft Skin: Negative: Rash, Suspicious Lesions, Ulceration Extremities: Present: upper extr. pulses, edema - Labs and Meds Comprehensive Metabolic Panel 08/14/21 Range/Units 05:17 Sodium 144 (137-145) mmol/L Potassium 3.9 (3.6-5.0) mmol/L Chloride 100.3 (98-107) mmol/L Carbon Dioxide 34 H (22-30) mmol/L BUN 14 (9-20) mg/dL Creatinine 1.0 (0.8-1.3) mg/dL Glucose 138 H (75-100) mg/dL Calcium 8.6 (8.4-10.2) mg/dL - Imaging and Cardiology Echo: report reviewed - Telemetry EKG Rhythm: Atrial Fibrillation - EKG Supraventricular dysrhythmia: atrial fibrillation
--- NOTE | 2021-08-14 18:06 | Vascular Lab Report ---
DUPLEX DOPPLER LOWER EXTREMITY VEINS, BILATERAL INDICATION / CLINICAL INFORMATION: r/o DVT. TECHNIQUE: Duplex doppler imaging was performed through the veins of both lower extremities using venous claudia dagoberto and other maneuvers. COMPARISON: None available. FINDINGS: RIGHT COMMON FEMORAL VEIN: Negative. RIGHT FEMORAL VEIN: Negative. RIGHT POPLITEAL VEIN: Negative. RIGHT CALF VEINS: Negative. LEFT COMMON FEMORAL VEIN: Negative. LEFT FEMORAL VEIN: Negative. LEFT POPLITEAL VEIN: Negative. LEFT CALF VEINS: Negative. ADDITIONAL FINDINGS: None. IMPRESSION: 1. No sonographic evidence for DVT in either lower extremity. Signer Name: Gruu Negrete MD Signed: 08/14/2021 6:02 PM Workstation Name: [id number]
[2021-08-15] MEDS ORDERED: ALPRAZolam 0.25 MG TAB PO ONE (04:58)
[2021-08-15] MEDS: METOPROLOL TARTRATE 25 MG TAB PO SCH ×3 (05:07→21:50)
[2021-08-15 08:30] LABS: Mean Corpuscular HGB Conc 31 % (32-34); Mean Corpuscular Volume 88 fl (84-94); Platelet Count 194 K/mm3 (140-440); Red Blood Count 5.12 M/mm3 (3.65-5.03); Red Cell Distribution Width 15.8 % (13.2-15.2)
[2021-08-15 08:57] LABS: BUN/Creatinine Ratio 14; Blood Urea Nitrogen 13 mg/dL (9-20); Calcium 8.1 mg/dL (8.4-10.2); Hemolysis Index 25
[2021-08-15] MEDS: FUROSEMIDE 20 MG/2 ML INJ IV SCH ×2 (11:22→21:50)
[2021-08-15] MEDS: FAMOTIDINE 20 MG TAB PO SCH ×2 (11:22→21:50)
[2021-08-15] MEDS: amLODIPine 10 MG TAB PO SCH (11:22)
[2021-08-15] MEDS: ENOXAPARIN 100 MG/1 ML INJ SUB-Q SCH (11:23)
[2021-08-15] MEDS ORDERED: HEPARIN 10,000 UNITS/10 ML VIAL IV PRN (11:32)
[2021-08-15] MEDS ORDERED: HEPARIN 10,000 UNITS/10 ML VIAL IV ONE (11:32)
--- NOTE | 2021-08-15 13:41 | Progress Note ---
Assessment and Plan Patient is a 61-year-old male with past medical history of hypertension and B- cell lymphoma presents to the ED today with a complaint of shortness of breath which has been occurring since February however for the last month and a half patient reports that his symptoms have progressively worsened and found to be in A. fib with RVR New onset A. fib with RVR Acute respiratory failure-currently on nasal cannula HFrEF Cardiomyopathy Hypertension History of B-cell lymphoma History of sarcoidosis Echo 08/13/2021-EF 20 to 25%. LV severely dilated. Moderate to severe concentric LVH. Left atrium severely dilated. Right ventricular systolic function is normal Plan: Patient remains chest pain-free Patient remains in A. fib with RVR. Plan for ROBY and cardioversion in the a.m. Patient to be n.p.o. after midnight Rapid COVID test ordered Continue metoprolol 25 mg p.o. 3 times daily and amiodarone Will stop Lovenox and convert to heparin drip for anticoagulation Continue light diuresis with Lasix 20 mg IV twice daily. Repeat BMP in the a.m. strict I's and O's We will hold initiation of MANISH or ARB due to unclear blood pressure readings and new addition of metoprolol. Will add MANISH and ARB once BP and rate is controlled Due to newly diagnosed cardiomyopathy will eventually plan for ischemic eval once patient is rate controlled Discussed plan of care with both patient and patient's daughter who is at bedside. Both patient and daughter verbalized acknowledgment and agreement with plan of care. All questions were answered at that time Patient conjunction with Dr. Joe who agrees with this plan of care - Patient Problems (1) Hypertension Current Visit: Yes Status: Acute (2) CHF (congestive heart failure) Current Visit: Yes Status: Acute Qualifiers: Heart failure type: systolic Heart failure chronicity: acute Qualified Code(s): I50.21 - Acute systolic (congestive) heart failure (3) Atrial fibrillation Current Visit: No Status: Inactive Qualifiers: Atrial fibrillation type: unspecified Qualified Code(s): I48.91 - Unspecified atrial fibrillation Subjective Date of service: 08/15/21 Principal diagnosis: A. fib with RVR Interval history: Patient resting in bed in no acute distress. Patient reports improvement in respiratory status Patient is a A. fib with RVR on monitor rate anywhere from 90s to 120s with episodes into 140s Objective Vital Signs Temp Pulse Pulse Resp BP Pulse Ox 08/15/21 12:00 107 H 20 96 08/15/21 11:22 112 H 08/15/21 10:00 113 H 08/15/21 07:38 99.0 F 78 18 120/74 92 08/15/21 05:00 98.8 F 61 18 148/85 98 08/15/21 02:00 113 H 08/15/21 00:00 107 H 20 96 08/14/21 23:46 100.0 F H 59 L 16 139/87 97 08/14/21 20:24 100 08/14/21 19:32 99.7 F H 93 H 20 121/85 94 08/14/21 17:06 98.1 F 20 139/85 - Physical Examination General: No Apparent Distress HEENT: Positive: Normocephaly Neck: Positive: trachea midline Cardiac: Positive: irregularly irregular Lungs: Positive: Decreased Breath Sounds Neuro: Positive: Grossly Intact Abdomen: Positive: Soft Skin: Negative: Rash, Suspicious Lesions, Ulceration Extremities: Present: upper extr. pulses, edema - Labs and Meds CBC 08/15/21 Range/Units 07:18 WBC 6.2 (4.5-11.0) K/mm3 RBC 5.12 H (3.65-5.03) M/mm3 Hgb 14.0 (11.8-15.2) gm/dl Hct 45.0 (35.5-45.6) % Plt Count 194 (140-440) K/mm3 Comprehensive Metabolic Panel 08/15/21 Range/Units 07:18 Sodium 145 (137-145) mmol/L Potassium 4.2 (3.6-5.0) mmol/L Chloride 98.1 (98-107) mmol/L Carbon Dioxide 31 H (22-30) mmol/L BUN 13 (9-20) mg/dL Creatinine 0.9 (0.8-1.3) mg/dL Glucose 135 H (75-100) mg/dL Calcium 8.1 L (8.4-10.2) mg/dL - Imaging and Cardiology Echo: report reviewed - Telemetry EKG Rhythm: Atrial Fibrillation - EKG Supraventricular dysrhythmia: atrial fibrillation
[2021-08-15] MEDS: HEPARIN/ 0.45% NACL DRIP 25,000 UNIT/500 ML BAG IV SCH ×2 (14:00→15:59)
--- NOTE | 2021-08-15 14:06 | Progress Note ---
Subjective Date of service: 08/15/21 Principal diagnosis: A. fib with RVR Interval history: 61 YO Male with HTN, NHL, Sarcoidosis, Obesity Hypoventilation Syndrome presents to ED for evaluation. Patient reports "it is hard to breathe and my heart is beating fast" progressively worse since weeks. Patient acknowledges shortness of breath, decreased exercise tolerance, dyspnea on exertion as well as dyspnea at rest. The patient was seen and evaluated in the emergency department. Patient found to have new onset atrial fibrillation on EKG with rapid ventricular response as well as clinical symptoms consistent with CHF decompensation. Cardiology team consulted in ED. Patient initiated on therapeutic anticoagulation in the emergency department. Patient denies fever, chills, chest pain, productive cough, skin rash, recent contact, known exposure to COVID-19. No prior admission for review. 08/15 patient is awake and alert and resting in the bed. No apparent distress and he offers no specific complaints. He denies any chest pain or shortness of breath. Denies fever or chills denies nausea or abdominal pain.. His is in the room. Cardiology note reviewed and discussed with cardiology PA. Scheduled for ROBY in a.m. (1) acute systolic CHF (congestive heart failure) Current Visit: Yes Status: Acute Qualifiers: Heart failure type: systolic Heart failure chronicity: acute Qualified Code(s): I50.21 - Acute systolic (congestive) heart failure Plan to address problem: BNP 1153 and chest x-ray suggestive of CHF. This is new Strict I's/O, monitor urine output every shift, daily weight, afterload reduction, blood pressure control, cardiology team consulted in ED, thyroid panel, magnesium level, BNP, echocardiogram ordered and pending at time of admission. Cardiology evaluation is in progress. On IV Lasix and CHF regimen as per cardiology. Echo 08/13/2021-EF 20 to 25%. LV severely dilated. Moderate to severe concentric LVH. Left atrium severely dilated. Right ventricular systolic function is normal (2) Atrial fibrillation with RVR Current Visit: Yes Status: Acute Plan to address problem: Rate control, therapeutic anticoagulation, cardiology consulted Restarted on IV heparin Scheduled for ROBY in a.m. Patient has been compliant with Cardizem and atenolol. (3) Hypertension Current Visit: Yes Status: Acute Qualifiers: Hypertension type: primary hypertension Qualified Code(s): I10 - Essential (primary) hypertension Plan to address problem: Monitor blood pressure every shift, continue medical management. (4) remote history of sarcoidosis Current Visit: Yes Status: Acute Plan to address problem: Not active since years per patient. Outpatient rheumatology follow-up, supportive care. (5) Non Hodgkin's lymphoma Current Visit: Yes Status: Acute Plan to address problem: No acute exacerbation at this time. Outpatient oncology follow-up. (6) morbid obesity at high risk for JEFFREY Current Visit: Yes Status: Acute Plan to address problem: Balanced diet, increase physical activity discharge, outpatient pulmonary follow-up for sleep study. (7) DVT prophylaxis Current Visit: Yes Status: Acute Plan to address problem: SCD to bilateral lower extremities while in bed, continue therapeutic anticoagulation. Objective - Constitutional Vitals: Vital Signs - 12hr 08/15/21 08/15/21 08/15/21 05:00 07:38 10:00 Temperature 98.8 F 99.0 F Pulse Rate 61 78 113 H Pulse Rate [ From Monitor] Respiratory 18 18 Rate Blood Pressure 148/85 120/74 O2 Sat by Pulse 98 92 Oximetry 08/15/21 08/15/21 11:22 12:00 Temperature Pulse Rate 112 H Pulse Rate [ 107 H From Monitor] Respiratory 20 Rate Blood Pressure O2 Sat by Pulse 96 Oximetry General appearance: Present: no acute distress, well-nourished - EENT Eyes: PERRL, EOM intact - Neck Neck: supple, normal ROM - Respiratory Respiratory effort: normal Respiratory: bilateral: CTA - Cardiovascular Rhythm: irregularly irregular Heart Sounds: Present: S1 & S2 Extremities: No edema - Gastrointestinal General gastrointestinal: Present: soft, non-tender Rectal Exam: deferred - Genitourinary Male genitourinary: deferred - Integumentary Integumentary: clear - Musculoskeletal Musculoskeletal: strength equal bilaterally - Neurologic Neurologic: moves all extremities - Psychiatric Psychiatric: appropriate mood/affect - Labs CBC & Chem 7: 08/15/21 07:18 08/15/21 07:18 Labs: Abnormal lab results 08/15/21 08/15/21 Range/Units 07:18 07:18 RBC 5.12 H (3.65-5.03) M/mm3 MCH 27 L (28-32) pg MCHC 31 L (32-34) % RDW 15.8 H (13.2-15.2) % Carbon Dioxide 31 H (22-30) mmol/L Glucose 135 H (75-100) mg/dL Calcium 8.1 L (8.4-10.2) mg/dL HEART Score - HEART Score Troponin: Troponin T < 0.010 ng/mL (0.00-0.029) 08/13/21 11:45
[2021-08-15 14:21] LABS: Hematocrit 44.9 % (35.5-45.6); Hemoglobin 13.8 gm/dl (11.8-15.2)
[2021-08-15 14:29] LABS: INR 1.1 (0.87-1.13)
[2021-08-15 14:30] LABS: Partial Thromboplastin Time 36.9 Sec. (24.2-36.6)
--- NOTE | 2021-08-15 20:01 | Electrocardiograph Report ---
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
[2021-08-15] MEDS: AMIODARONE 900 MG in DEXTROSE 5% IN WATER 482 ML IV SCH (20:18)
[2021-08-16 07:15] LABS: BUN/Creatinine Ratio 18; Blood Urea Nitrogen 16 mg/dL (9-20); Calcium 8.5 mg/dL (8.4-10.2); Hemolysis Index 8
[2021-08-16] MEDS: METOPROLOL TARTRATE 25 MG TAB PO SCH ×3 (07:19→21:14)
[2021-08-16] MEDS ORDERED: BENZOCAINE 20% TOP SPRAY 0.5 ML UNIT DOSE MM ONE (08:42)
[2021-08-16] MEDS ORDERED: SODIUM CHLORIDE 0.9% 1000 ML 1,000 ML ONE (08:42)
--- NOTE | 2021-08-16 08:53 | Anesthesia Day of Surgery ---
Anesthesia Day of Surgery - Day of Surgery Patient Examined: Yes Patient H&P Reviewed: Yes Patient is NPO: Yes
--- NOTE | 2021-08-16 08:56 | Anesthesia Consultation ---
Anesthesia Consult and Med Hx Date of service: 08/16/21 - Airway Anesthetic Teeth Evaluation: Good ROM Head & Neck: Adequate Mental/Hyoid Distance: Adequate Mallampati Class: Class III Intubation Access Assessment: Probably Good - Pre-Operative Health Status ASA Pre-Surgery Classification: ASA3 Proposed Anesthetic Plan: MAC - Pulmonary Hx Smoking: Yes (past smoker) Hx Asthma: No COPD: No Hx Pneumonia: No Hx Sleep Apnea: (high risk score for omid) - Cardiovascular System Hx Hypertension: Yes Hx Cardia Arrhythmia: Yes (New onset AFIB with RVR) - Central Nervous System Hx Psychiatric Problems: No - Endocrine Hx End Stage Renal Disease: No - Hematic Hx Sickle Cell Disease: No - Other Systems Hx Cancer: Yes (non Hodgkins limpoma chemo and radio thrapy) - Additional Comments Anesthesia Medical History Comments: History of B-cell lymphoma. History of sarcoidosis. Echo 08/13/2021-EF 20 to 25%. LV severely dilated. Moderate to severe concentric LVH. Left atrium severely dilated. Right ventricular systolic function is normal
[2021-08-16] MEDS ORDERED: SODIUM CHLORIDE 0.9% 1000 ML 1,000 ML IV SCH (09:00)
[2021-08-16] MEDS ORDERED: BENZOCAINE 20% TOP SPRAY 0.5 ML UNIT DOSE MM NR (09:00)
[2021-08-16] MEDS: HEPARIN/ 0.45% NACL DRIP 25,000 UNIT/500 ML BAG IV SCH ×2 (10:15→14:48)
[2021-08-16] MEDS: FAMOTIDINE 20 MG TAB PO SCH ×2 (10:20→21:13)
[2021-08-16] MEDS: amLODIPine 10 MG TAB PO SCH (10:20)
[2021-08-16] MEDS: FUROSEMIDE 20 MG/2 ML INJ IV SCH (10:21)
[2021-08-16] MEDS ORDERED: FUROSEMIDE 20 MG/2 ML INJ IV SCH (10:26)
--- NOTE | 2021-08-16 11:13 | Progress Note ---
Assessment and Plan Patient is a 61-year-old male with past medical history of hypertension and B- cell lymphoma presents to the ED today with a complaint of shortness of breath which has been occurring since February however for the last month and a half patient reports that his symptoms have progressively worsened and found to be in A. fib with RVR New onset A. fib with RVR Acute respiratory failure-currently on nasal cannula HFrEF Cardiomyopathy Hypertension History of B-cell lymphoma History of sarcoidosis Echo 08/13/2021-EF 20 to 25%. LV severely dilated. Moderate to severe concentric LVH. Left atrium severely dilated. Right ventricular systolic function is normal Plan: Patient for ROBY cardioversion this AM. ROBY cardioversion canceled due to patient's O2 sats high 80s on room air and dropped into the low 80s when laid in supine position Will increase to Lasix 40 mg IV twice daily for diuresis Repeat BMP in the a.m. strict I's and O's Patient remains in A. fib however rate is significantly improved this a.m. Rate trending 80s to 90s Continue metoprolol 25 mg p.o. 3 times daily Stop amiodarone drip and convert to amiodarone 20 mg p.o. twice daily Continue heparin drip for anticoagulation Patient's rate is improved we will initiate low-dose lisinopril 2.5 mg p.o. twice daily Due to newly diagnosed cardiomyopathy will eventually plan for ischemic eval once patient is rate controlled Discussed plan of care with patient Both patient verbalized acknowledgment and agreement with plan of care. All questions were answered at that time Patient conjunction with Dr. Joe who agrees with this plan of care - Patient Problems (1) Hypertension Current Visit: Yes Status: Acute (2) CHF (congestive heart failure) Current Visit: Yes Status: Acute Qualifiers: Heart failure type: systolic Heart failure chronicity: acute Qualified Code(s): I50.21 - Acute systolic (congestive) heart failure (3) Atrial fibrillation Current Visit: No Status: Inactive Qualifiers: Atrial fibrillation type: unspecified Qualified Code(s): I48.91 - Unspecified atrial fibrillation Subjective Date of service: 08/16/21 Principal diagnosis: A. fib with RVR Interval history: Patient for ROBY/cardioversion this a.m. Patient remains in A. fib however rate is controlled rate trending 80s to 90s Objective Vital Signs Temp Pulse Pulse Pulse Resp Resp BP 08/16/21 09:08 89 20 08/16/21 07:41 97.6 F 72 20 122/77 08/16/21 07:19 61 126/89 08/16/21 03:24 98.6 F 61 18 126/89 08/16/21 02:00 81 08/15/21 23:43 98.8 F 62 18 136/83 08/15/21 22:00 107 H 20 08/15/21 21:50 72 122/87 08/15/21 20:00 08/15/21 19:43 99.1 F 72 18 122/87 08/15/21 18:00 104 H 08/15/21 15:21 98.6 F 85 18 124/88 08/15/21 15:00 18 08/15/21 14:01 94 H 08/15/21 12:00 107 H 20 08/15/21 11:22 112 H BP Pulse Ox Pulse Ox 08/16/21 09:08 128/71 88 08/16/21 07:41 96 08/16/21 07:19 08/16/21 03:24 99 08/16/21 02:00 08/15/21 23:43 99 08/15/21 22:00 96 08/15/21 21:50 08/15/21 20:00 98 08/15/21 19:43 99 08/15/21 18:00 08/15/21 15:21 96 08/15/21 15:00 08/15/21 14:01 08/15/21 12:00 96 08/15/21 11:22 - Physical Examination General: No Apparent Distress HEENT: Positive: Normocephaly Neck: Positive: trachea midline Cardiac: Positive: irregularly irregular Lungs: Positive: Decreased Breath Sounds Neuro: Positive: Grossly Intact Abdomen: Positive: Soft Skin: Negative: Rash, Suspicious Lesions, Ulceration Extremities: Present: upper extr. pulses, edema - Labs and Meds Coagulation 08/15/21 Range/Units 13:56 PT 15.5 H (12.2-14.9) Sec. INR 1.10 (0.87-1.13) APTT 36.9 H (24.2-36.6) Sec. CBC 08/15/21 Range/Units 13:56 Hgb 13.8 (11.8-15.2) gm/dl Hct 44.9 (35.5-45.6) % Plt Count 185 (140-440) K/mm3 Comprehensive Metabolic Panel 08/16/21 Range/Units 05:43 Sodium 142 (137-145) mmol/L Potassium 4.1 (3.6-5.0) mmol/L Chloride 96.1 L (98-107) mmol/L Carbon Dioxide 35 H (22-30) mmol/L BUN 16 (9-20) mg/dL Creatinine 0.9 (0.8-1.3) mg/dL Glucose 124 H (75-100) mg/dL Calcium 8.5 (8.4-10.2) mg/dL - Imaging and Cardiology Echo: report reviewed - Telemetry EKG Rhythm: Atrial Fibrillation - EKG Supraventricular dysrhythmia: atrial fibrillation
[2021-08-16] MEDS: FUROSEMIDE 40 MG/4 ML INJ IV SCH ×2 (12:53→17:51)
[2021-08-16] MEDS: AMIODARONE 200 MG TAB PO SCH ×2 (12:54→21:14)
[2021-08-16] MEDS: LISINOPRIL 5 MG TAB PO SCH (12:54)
--- NOTE | 2021-08-16 15:19 | Progress Note ---
Assessment and Plan 61 YO Male with HTN, NHL, Sarcoidosis, Obesity Hypoventilation Syndrome presents to ED for evaluation. Patient reports "it is hard to breathe and my heart is beating fast" progressively worse since weeks. Patient acknowledges shortness of breath, decreased exercise tolerance, dyspnea on exertion as well as dyspnea at rest. The patient was seen and evaluated in the emergency department. Patient found to have new onset atrial fibrillation on EKG with rapid ventricular response as well as clinical symptoms consistent with CHF de compensation. Cardiology team consulted in ED. Patient initiated on therapeutic anticoagulation in the emergency department. Patient denies fever, chills, chest pain, productive cough, skin rash, recent contact, known exposure to COVID-19. No prior admission for review. 08/15 patient is awake and alert and resting in the bed. No apparent distress and he offers no specific complaints. He denies any chest pain or shortness of breath. Denies fever or chills denies nausea or abdominal pain.. His is in the room. Cardiology note reviewed and discussed with cardiology PA. Scheduled for ROBY in a.m. 08/16: Unable to do ROBY and cardioversion for hypoxemia. Plan to manage patient medically. Continue to adjust cardiac medications for atrial fib and CHF. Monitor daily weight, continue telemetry monitoring. Cardiac diet A/P -- Acute systolic CHF (congestive heart failure) Current Visit: Yes Status: Acute Qualifiers: Heart failure type: systolic Heart failure chronicity: acute Qualified Code(s): I50.21 - Acute systolic (congestive) heart failure Plan to address problem: BNP 1153 and chest x-ray suggestive of CHF. Strict I's/O, monitor urine output every shift, daily weight, afterload reduction, blood pressure control, cardiology team consulted in ED, thyroid panel, magnesium level, BNP, echocardiogram ordered and pending at time of admission. Cardiology evaluation is in progress. On IV Lasix and CHF regimen as per cardiology. Echo 08/13/2021-EF 20 to 25%. LV severely dilated. Moderate to severe concentric LVH. Left atrium severely dilated. Right ventricular systolic function is normal -- Atrial fibrillation with RVR Current Visit: Yes Status: Acute Plan to address problem: Rate control, therapeutic anticoagulation, cardiology consulted s/p IV heparin, unable to do ROBY, plan to manage heart rate with medications Patient has been compliant with Cardizem and atenolol. -- Hypertension Current Visit: Yes Status: Acute Qualifiers: Hypertension type: primary hypertension Qualified Code(s): I10 - Essential (primary) hypertension Plan to address problem: Monitor blood pressure every shift, continue medical management. --Remote history of sarcoidosis Current Visit: Yes Status: Acute Plan to address problem: Not active since years per patient. Outpatient rheumatology follow-up, supportive care. -- Non Hodgkin's lymphoma Current Visit: Yes Status: Acute Plan to address problem: No acute exacerbation at this time. Outpatient oncology follow-up. -- morbid obesity at high risk for JEFFREY Current Visit: Yes Status: Acute Plan to address problem: Balanced diet, increase physical activity discharge, outpatient pulmonary follow-up for sleep study. -- DVT prophylaxis Current Visit: Yes Status: Acute Plan to address problem: SCD to bilateral lower extremities while in bed, continue therapeutic anticoagulation. Subjective Date of service: 08/16/21 Principal diagnosis: A. fib with RVR Interval history: Patient seen and examined. Medical records and medication list reviewed. No acute event overnight noted by the RN. Patient denies any chest pain or difficulty breathing. Unable to do cardioversion during ROBY for hypoxemia Discussed plan of care at bedside with patient. Objective - Exam Narrative Exam: General appearance: Present: no acute distress, well-nourished - EENT Eyes: PERRL, EOM intact - Neck Neck: supple, normal ROM - Respiratory Respiratory effort: normal Respiratory: bilateral: CTA - Cardiovascular Rhythm: irregularly irregular Heart Sounds: Present: S1 & S2 Extremities: No edema - Gastrointestinal General gastrointestinal: Present: soft, non-tender Rectal Exam: deferred - Genitourinary Male genitourinary: deferred - Integumentary Integumentary: clear - Musculoskeletal Musculoskeletal: strength equal bilaterally - Neurologic Neurologic: moves all extremities - Psychiatric Psychiatric: appropriate mood/affect - Constitutional Vitals: Vital Signs - 12hr 08/16/21 08/16/21 08/16/21 03:24 07:19 07:41 Temperature 98.6 F 97.6 F Pulse Rate 61 61 72 Pulse Rate [ From Monitor] Pulse Rate [Pre -Procedure] Respiratory 18 20 Rate Respiratory Rate [Pre- Procedure] Blood Pressure 126/89 126/89 122/77 Blood Pressure [Pre-Procedure] O2 Sat by Pulse 99 96 Oximetry O2 Sat by Pulse Oximetry [Pre- Procedure] 08/16/21 08/16/21 08/16/21 09:08 10:00 11:16 Temperature Pulse Rate 72 Pulse Rate [ 72 From Monitor] Pulse Rate [Pre 89 -Procedure] Respiratory 20 Rate Respiratory 20 Rate [Pre- Procedure] Blood Pressure Blood Pressure 128/71 [Pre-Procedure] O2 Sat by Pulse 96 96 Oximetry O2 Sat by Pulse 88 Oximetry [Pre- Procedure] - Labs CBC & Chem 7: 08/19/21 05:35 08/19/21 05:35 Labs: Abnormal lab results 08/15/21 08/16/21 08/16/21 Range/Units 23:01 05:43 05:43 Heparin Anti-Xa Level 1.23 H 0.86 H (0.3-0.7) U.I./ml Chloride 96.1 L (98-107) mmol/L Carbon Dioxide 35 H (22-30) mmol/L Glucose 124 H (75-100) mg/dL 08/16/21 Range/Units 12:50 Heparin Anti-Xa Level 0.76 H (0.3-0.7) U.I./ml Chloride (98-107) mmol/L Carbon Dioxide (22-30) mmol/L Glucose (75-100) mg/dL HEART Score - HEART Score Troponin: Troponin T < 0.010 ng/mL (0.00-0.029) 08/13/21 11:45
[2021-08-17] MEDS: HEPARIN/ 0.45% NACL DRIP 25,000 UNIT/500 ML BAG IV SCH (05:52)
[2021-08-17] MEDS: METOPROLOL TARTRATE 25 MG TAB PO SCH (05:52)
[2021-08-17] MEDS: FUROSEMIDE 40 MG/4 ML INJ IV SCH ×2 (05:52→17:56)
[2021-08-17 06:25] LABS: Hematocrit 45.9 % (35.5-45.6); Hemoglobin 14.3 gm/dl (11.8-15.2); Mean Corpuscular HGB Conc 31 % (32-34); Mean Corpuscular Volume 87 fl (84-94); Platelet Count 177 K/mm3 (140-440); Red Blood Count 5.26 M/mm3 (3.65-5.03); Red Cell Distribution Width 15.4 % (13.2-15.2)
[2021-08-17 06:39] LABS: BUN/Creatinine Ratio 18; Blood Urea Nitrogen 18 mg/dL (9-20); Calcium 8.9 mg/dL (8.4-10.2); Hemolysis Index 13
--- NOTE | 2021-08-17 10:21 | Progress Note ---
Assessment and Plan Patient is a 61-year-old male with past medical history of hypertension and B- cell lymphoma presents to the ED today with a complaint of shortness of breath which has been occurring since February however for the last month and a half patient reports that his symptoms have progressively worsened and found to be in A. fib with RVR New onset A. fib with RVR Acute respiratory failure-currently on nasal cannula HFrEF Cardiomyopathy Hypertension History of B-cell lymphoma History of sarcoidosis Echo 08/13/2021-EF 20 to 25%. LV severely dilated. Moderate to severe concentric LVH. Left atrium severely dilated. Right ventricular systolic function is normal rec: Increase metoprolol to 50 mg twice a day. Continue amiodarone 200 twice a day change IV heparin to Eliquis 5 mg twice a day. We will continue 1 more day of IV Lasix. Change to p.o. In the a.m. Reevaluate in a.m. for possible ischemic evaluation - Patient Problems (1) Respiratory failure with hypoxia Current Visit: Yes Status: Acute Qualifiers: Chronicity: acute Qualified Code(s): J96.01 - Acute respiratory failure with hypoxia (2) Atrial fibrillation with RVR Current Visit: Yes Status: Acute (3) CHF (congestive heart failure) Current Visit: Yes Status: Acute Qualifiers: Heart failure type: systolic Heart failure chronicity: acute Qualified Code(s): I50.21 - Acute systolic (congestive) heart failure (4) Hypertension Current Visit: Yes Status: Acute (5) Obesity hypoventilation syndrome Current Visit: Yes Status: Acute (6) Sarcoidosis Current Visit: Yes Status: Acute Subjective Date of service: 08/17/21 Principal diagnosis: A. fib with RVR Interval history: sob is better on 2l Objective Vital Signs Temp Pulse Resp BP Pulse Ox 08/17/21 07:45 98.4 F 76 18 110/80 94 08/17/21 04:07 98.0 F 72 18 146/83 95 08/16/21 23:37 98.0 F 64 18 98/59 86 08/16/21 22:00 98 08/16/21 20:00 108 H 08/16/21 19:48 98.9 F 80 18 114/66 96 08/16/21 18:00 92 H 08/16/21 15:27 99.2 F 64 20 125/82 94 08/16/21 11:16 96 - Physical Examination General: No Apparent Distress HEENT: Positive: Normocephaly Neck: Positive: trachea midline Cardiac: Positive: Irregularly Regular Lungs: Positive: clear to auscultation Neuro: Positive: Grossly Intact Abdomen: Positive: Soft Skin: Negative: Rash, Suspicious Lesions, Ulceration Extremities: Present: upper extr. pulses, edema (trace) - Labs and Meds CBC 08/17/21 Range/Units 06:02 WBC 4.2 L (4.5-11.0) K/mm3 RBC 5.26 H (3.65-5.03) M/mm3 Hgb 14.3 (11.8-15.2) gm/dl Hct 45.9 H (35.5-45.6) % Plt Count 177 (140-440) K/mm3 Comprehensive Metabolic Panel 08/17/21 Range/Units 06:02 Sodium 144 (137-145) mmol/L Potassium 3.6 (3.6-5.0) mmol/L Chloride 96.7 L (98-107) mmol/L Carbon Dioxide 42 H* D (22-30) mmol/L BUN 18 (9-20) mg/dL Creatinine 1.0 (0.8-1.3) mg/dL Glucose 126 H (75-100) mg/dL Calcium 8.9 (8.4-10.2) mg/dL - Imaging and Cardiology Echo: report reviewed - Telemetry EKG Rhythm: Atrial Fibrillation (90's)
[2021-08-17] MEDS: FAMOTIDINE 20 MG TAB PO SCH ×2 (10:30→21:50)
[2021-08-17] MEDS: LISINOPRIL 5 MG TAB PO SCH (10:30)
[2021-08-17] MEDS: AMIODARONE 200 MG TAB PO SCH ×2 (10:30→21:50)
[2021-08-17] MEDS: amLODIPine 10 MG TAB PO SCH (10:30)
[2021-08-17] MEDS: APIXABAN 5 MG TAB PO SCH ×2 (10:32→21:50)
[2021-08-17 10:50] LABS: INR 1.03 (0.87-1.13)
[2021-08-17 10:51] LABS: Partial Thromboplastin Time 30.9 Sec. (24.2-36.6)
[2021-08-17] MEDS: METOPROLOL TARTRATE 50 MG TAB PO SCH ×2 (11:55→21:50)
--- NOTE | 2021-08-17 18:01 | Progress Note ---
Assessment and Plan 61 YO Male with HTN, NHL, Sarcoidosis, Obesity Hypoventilation Syndrome presents to ED for evaluation. Patient reports "it is hard to breathe and my heart is beating fast" progressively worse since weeks. Patient acknowledges shortness of breath, decreased exercise tolerance, dyspnea on exertion as well as dyspnea at rest. The patient was seen and evaluated in the emergency department. Patient found to have new onset atrial fibrillation on EKG with rapid ventricular response as well as clinical symptoms consistent with CHF dec ompensation. Cardiology team consulted in ED. Patient initiated on therapeutic anticoagulation in the emergency department. Patient denies fever, chills, chest pain, productive cough, skin rash, recent contact, known exposure to COVID-19. No prior admission for review. 08/15 patient is awake and alert and resting in the bed. No apparent distress and he offers no specific complaints. He denies any chest pain or shortness of breath. Denies fever or chills denies nausea or abdominal pain.. His is in the room. Cardiology note reviewed and discussed with cardiology PA. Scheduled for ROBY in a.m. 08/16: Unable to do ROBY and cardioversion for hypoxemia. Plan to manage patient medically. Continue to adjust cardiac medications for atrial fib and CHF. Monitor daily weight, continue telemetry monitoring. Cardiac diet 08/18: Cardiology recommended to increase metoprolol to 50 mg twice a day. Continue amiodarone 200 twice a day, change IV heparin to Eliquis 5 mg twice a day. Continue to follow clinically. Need further ischemic work-up when clinically more stable A/P -- Acute systolic CHF (congestive heart failure) Current Visit: Yes Status: Acute Qualifiers: Heart failure type: systolic Heart failure chronicity: acute Qualified Code(s): I50.21 - Acute systolic (congestive) heart failure Plan to address problem: BNP 1153 and chest x-ray suggestive of CHF. Strict I's/O, monitor urine output every shift, daily weight, afterload reduction, blood pressure control, cardiology team consulted in ED, thyroid panel, magnesium level, BNP, Cardiology evaluation is in progress. On IV Lasix and CHF regimen as per cardiology. Echo 08/13/2021-EF 20 to 25%. LV severely dilated. Moderate to severe concentric LVH. Left atrium severely dilated. Right ventricular systolic function is normal -- Atrial fibrillation with RVR Current Visit: Yes Status: Acute Plan to address problem: Rate control, therapeutic anticoagulation, cardiology consulted s/p IV heparin now on Eliquis, unable to do ROBY for hypoxemia, plan to manage heart rate with medications Patient has been compliant with Cardizem and atenolol. -- Hypertension Current Visit: Yes Status: Acute Qualifiers: Hypertension type: primary hypertension Qualified Code(s): I10 - Essential (primary) hypertension Plan to address problem: Monitor blood pressure every shift, continue medical management. --Hypoxemia: Multifactorial, likely due to pulmonary edema from volume overload and with possible underlying obesity hypoventilation syndrome, patient also has history of sarcoidosis, continue diuresis for now We will assess for home O2 requirement before discharge --Remote history of sarcoidosis Current Visit: Yes Status: Acute Plan to address problem: Not active since years per patient. Outpatient rheumatology follow-up, supportive care. -- Non Hodgkin's lymphoma Current Visit: Yes Status: Acute Plan to address problem: No acute exacerbation at this time. Outpatient oncology follow-up. -- morbid obesity at high risk for JEFFREY Current Visit: Yes Status: Acute Plan to address problem: Balanced diet, increase physical activity discharge, outpatient pulmonary follow-up for sleep study. -- DVT prophylaxis Current Visit: Yes Status: Acute Plan to address problem: SCD to bilateral lower extremities while in bed, continue therapeutic anticoagulation. Subjective Date of service: 08/17/21 Principal diagnosis: A. fib with RVR Interval history: Patient seen and examined. Medical records and medication list reviewed. No acute event overnight noted by the RN. Patient doing well, eating lunch Heart rate better controlled Discussed plan of care at bedside with patient. Objective - Exam Narrative Exam: General appearance: Present: no acute distress, well-nourished - EENT Eyes: PERRL, EOM intact - Neck Neck: supple, normal ROM - Respiratory Respiratory effort: normal Respiratory: bilateral: CTA - Cardiovascular Rhythm: irregularly irregular Heart Sounds: Present: S1 & S2 Extremities: No edema - Gastrointestinal General gastrointestinal: Present: soft, non-tender Rectal Exam: deferred - Genitourinary Male genitourinary: deferred - Integumentary Integumentary: clear - Musculoskeletal Musculoskeletal: strength equal bilaterally - Neurologic Neurologic: moves all extremities - Psychiatric Psychiatric: appropriate mood/affect - Constitutional Vitals: Vital Signs - 12hr 04/16/22 04/16/22 04/16/22 07:45 08:00 14:00 Temperature 98.4 F Pulse Rate 76 96 H Pulse Rate [ 96 H Apical] Respiratory 18 Rate Blood Pressure 110/80 O2 Sat by Pulse 94 100 97 Oximetry 08/17/21 15:31 Temperature 98.4 F Pulse Rate 69 Pulse Rate [ Apical] Respiratory 18 Rate Blood Pressure 114/73 O2 Sat by Pulse 97 Oximetry - Labs CBC & Chem 7: 08/19/21 05:35 08/19/21 05:35 Labs: Abnormal lab results 08/17/21 08/17/21 08/17/21 Range/Units 06:02 06:02 09:45 WBC 4.2 L (4.5-11.0) K/mm3 RBC 5.26 H (3.65-5.03) M/mm3 Hct 45.9 H (35.5-45.6) % MCH 27 L (28-32) pg MCHC 31 L (32-34) % RDW 15.4 H (13.2-15.2) % Heparin Anti-Xa Level < 0.10 L (0.3-0.7) U.I./ml Chloride 96.7 L (98-107) mmol/L Carbon Dioxide 42 H* D (22-30) mmol/L Glucose 126 H (75-100) mg/dL HEART Score - HEART Score Troponin: Troponin T < 0.010 ng/mL (0.00-0.029) 08/13/21 11:45
[2021-08-18] MEDS: FUROSEMIDE 40 MG/4 ML INJ IV SCH ×2 (05:28→17:12)
[2021-08-18 05:44] LABS: Alanine Aminotransferase 17 units/L (7-56); Albumin 3.9 g/dL (3.9-5); BUN/Creatinine Ratio 16; Blood Urea Nitrogen 16 mg/dL (9-20); Calcium 8.9 mg/dL (8.4-10.2); Hemolysis Index 7
[2021-08-18] MEDS ORDERED: POTASSIUM CHLORIDE ER 20 MEQ TAB PO ONE (08:24)
[2021-08-18] MEDS: METOPROLOL TARTRATE 50 MG TAB PO SCH ×3 (10:22→22:03)
[2021-08-18] MEDS: APIXABAN 5 MG TAB PO SCH ×2 (10:22→22:03)
[2021-08-18] MEDS: AMIODARONE 200 MG TAB PO SCH (10:22)
[2021-08-18] MEDS: FAMOTIDINE 20 MG TAB PO SCH ×2 (10:22→22:03)
[2021-08-18] MEDS: LOSARTAN 25 MG TAB PO SCH (10:22)
--- NOTE | 2021-08-18 10:56 | Progress Note ---
Assessment and Plan Patient is a 61-year-old male with past medical history of hypertension and B- cell lymphoma presents to the ED today with a complaint of shortness of breath which has been occurring since February however for the last month and a half patient reports that his symptoms have progressively worsened and found to be in A. fib with RVR New onset A. fib with RVR Acute respiratory failure-currently on nasal cannula HFrEF Cardiomyopathy Hypertension History of B-cell lymphoma History of sarcoidosis Echo 08/13/2021-EF 20 to 25%. LV severely dilated. Moderate to severe concentric LVH. Left atrium severely dilated. Right ventricular systolic function is normal rec: Increase metoprolol to 50 mg three times a day. Continue amiodarone 200 once a day cont Eliquis 5 mg twice a day. change to oral lasix and stress in am wean off o2 and ambulate patient - Patient Problems (1) Respiratory failure with hypoxia Current Visit: Yes Status: Acute Qualifiers: Chronicity: acute Qualified Code(s): J96.01 - Acute respiratory failure with hypoxia (2) Atrial fibrillation with RVR Current Visit: Yes Status: Acute (3) CHF (congestive heart failure) Current Visit: Yes Status: Acute Qualifiers: Heart failure type: systolic Heart failure chronicity: acute Qualified Code(s): I50.21 - Acute systolic (congestive) heart failure (4) Hypertension Current Visit: Yes Status: Acute (5) Obesity hypoventilation syndrome Current Visit: Yes Status: Acute (6) Sarcoidosis Current Visit: Yes Status: Acute Subjective Date of service: 08/18/21 Principal diagnosis: A. fib with RVR Interval history: sob is improving Objective Vital Signs Temp Pulse Pulse Resp BP BP Pulse Ox 08/18/21 07:51 98.4 F 57 L 18 124/79 99 08/18/21 04:28 79 92 08/18/21 04:27 97.6 F 76 18 90 08/18/21 04:26 71 101/67 88 08/18/21 00:19 64 96 08/18/21 00:00 97.6 F 18 122/81 08/17/21 21:51 100 08/17/21 21:50 69 121/87 08/17/21 21:09 98 08/17/21 20:00 98 H 100 08/17/21 19:23 69 08/17/21 19:21 98.4 F 18 121/87 08/17/21 19:00 100 08/17/21 15:31 98.4 F 69 18 114/73 97 08/17/21 14:00 96 H 96 H 97 - Physical Examination General: No Apparent Distress HEENT: Positive: Normocephaly Neck: Positive: trachea midline Cardiac: Positive: Irregularly Regular Lungs: Positive: clear to auscultation Neuro: Positive: Grossly Intact Abdomen: Positive: Soft Skin: Negative: Rash, Suspicious Lesions, Ulceration Extremities: Present: upper extr. pulses. Absent: edema (trace) - Labs and Meds Cardiac Enzymes 08/18/21 Range/Units 04:52 AST 16 (5-40) units/L Comprehensive Metabolic Panel 08/18/21 Range/Units 04:52 Sodium 145 (137-145) mmol/L Potassium 3.5 L (3.6-5.0) mmol/L Chloride 94.0 L (98-107) mmol/L Carbon Dioxide 40 H (22-30) mmol/L BUN 16 (9-20) mg/dL Creatinine 1.0 (0.8-1.3) mg/dL Glucose 112 H (75-100) mg/dL Calcium 8.9 (8.4-10.2) mg/dL AST 16 (5-40) units/L ALT 17 (7-56) units/L Alkaline Phosphatase 78 (35-129) units/L Total Protein 5.9 L (6.3-8.2) g/dL Albumin 3.9 (3.9-5) g/dL - Imaging and Cardiology Echo: report reviewed - Telemetry EKG Rhythm: Atrial Fibrillation (in 80's)
--- NOTE | 2021-08-18 12:49 | Progress Note ---
Subjective Date of service: 08/18/21 Principal diagnosis: A. fib with RVR Interval history: 61 YO Male with HTN, NHL, Sarcoidosis, Obesity Hypoventilation Syndrome presents to ED for evaluation. Patient reports "it is hard to breathe and my heart is beating fast" progressively worse since weeks. Patient acknowledges shortness of breath, decreased exercise tolerance, dyspnea on exertion as well as dyspnea at rest. The patient was seen and evaluated in the emergency department. Patient found to have new onset atrial fibrillation on EKG with rapid ventricular response as well as clinical symptoms consistent with CHF decompensation. Cardiology team consulted in ED. Patient initiated on therapeutic anticoagulation in the emergency department. Patient denies fever, chills, chest pain, productive cough, skin rash, recent contact, known exposure to COVID-19. No prior admission for review. 08/15 patient is awake and alert and resting in the bed. No apparent distress and he offers no specific complaints. He denies any chest pain or shortness of breath. Denies fever or chills denies nausea or abdominal pain.. His is in the room. Cardiology note reviewed and discussed with cardiology PA. Scheduled for ROBY in a.m. (1) acute systolic CHF (congestive heart failure) Current Visit: Yes Status: Acute Qualifiers: Heart failure type: systolic Heart failure chronicity: acute Qualified Code(s): I50.21 - Acute systolic (congestive) heart failure Plan to address problem: BNP 1153 and chest x-ray suggestive of CHF. This is new Strict I's/O, monitor urine output every shift, daily weight, afterload reduction, blood pressure control, cardiology team consulted in ED, thyroid panel, magnesium level, BNP, echocardiogram ordered and pending at time of admission. Cardiology evaluation is in progress. On IV Lasix and CHF regimen as per cardiology. Echo 08/13/2021-EF 20 to 25%. LV severely dilated. Moderate to severe concentric LVH. Left atrium severely dilated. Right ventricular systolic function is normal Discussed with cardiology Patient is scheduled for stress test tomorrow (2) Atrial fibrillation with RVR Current Visit: Yes Status: Acute Plan to address problem: Rate control, therapeutic anticoagulation, cardiology consulted/note reviewed a nd appreciated Restarted on IV heparin Scheduled for ROBY in a.m. Patient has been compliant with Cardizem and atenolol. (3) Hypertension Current Visit: Yes Status: Acute Qualifiers: Hypertension type: primary hypertension Qualified Code(s): I10 - Essential (primary) hypertension Plan to address problem: Monitor blood pressure every shift, continue medical management. (4) remote history of sarcoidosis Current Visit: Yes Status: Acute Plan to address problem: Not active since years per patient. Outpatient rheumatology follow-up, supportive care. (5) Non Hodgkin's lymphoma Current Visit: Yes Status: Acute Plan to address problem: No acute exacerbation at this time. Outpatient oncology follow-up. (6) morbid obesity at high risk for JEFFREY Current Visit: Yes Status: Acute Plan to address problem: Balanced diet, increase physical activity discharge, outpatient pulmonary follow-up for sleep study. 7) hypoxia Patient this morning was on 3 L oxygen via nasal cannula Wean as tolerated 6-minute walk at discharge (8) DVT prophylaxis Current Visit: Yes Status: Acute Plan to address problem: SCD to bilateral lower extremities while in bed, continue therapeutic anticoagulation. Objective - Constitutional Vitals: Vital Signs - 12hr 08/18/21 08/18/21 08/18/21 04:26 04:27 04:28 Temperature 97.6 F Pulse Rate 71 76 79 Pulse Rate [ Apical] Respiratory 18 Rate Blood Pressure 101/67 O2 Sat by Pulse 88 90 92 Oximetry 08/18/21 08/18/21 08/18/21 07:51 12:00 12:21 Temperature 98.4 F Pulse Rate 57 L 84 Pulse Rate [ 84 Apical] Respiratory 18 Rate Blood Pressure 124/79 O2 Sat by Pulse 99 97 Oximetry General appearance: Present: no acute distress, obese - EENT Eyes: PERRL, EOM intact ENT: hearing intact - Neck Neck: supple, normal ROM, no masses or JVD - Respiratory Respiratory effort: normal Respiratory: bilateral: CTA, diminished - Cardiovascular Rhythm: irregularly irregular Heart Sounds: Present: S1 & S2 Extremities: No edema - Gastrointestinal General gastrointestinal: Present: soft Rectal Exam: deferred - Genitourinary Male genitourinary: deferred - Integumentary Integumentary: clear - Musculoskeletal Musculoskeletal: strength equal bilaterally - Neurologic Neurologic: no focal deficits, moves all extremities - Psychiatric Psychiatric: appropriate mood/affect - Labs CBC & Chem 7: 08/17/21 06:02 08/18/21 04:52 Labs: Abnormal lab results 08/18/21 Range/Units 04:52 Potassium 3.5 L (3.6-5.0) mmol/L Chloride 94.0 L (98-107) mmol/L Carbon Dioxide 40 H (22-30) mmol/L Glucose 112 H (75-100) mg/dL Total Bilirubin 1.30 H (0.1-1.2) mg/dL Total Protein 5.9 L (6.3-8.2) g/dL HEART Score - HEART Score Troponin: Troponin T < 0.010 ng/mL (0.00-0.029) 08/13/21 11:45
[2021-08-19 06:03] LABS: Hematocrit 46.3 % (35.5-45.6); Mean Corpuscular HGB Conc 32 % (32-34); Mean Corpuscular Volume 86 fl (84-94); Platelet Count 193 K/mm3 (140-440); Red Cell Distribution Width 15.2 % (13.2-15.2)
[2021-08-19 06:23] LABS: BUN/Creatinine Ratio 17; Blood Urea Nitrogen 17 mg/dL (9-20); Calcium 9.2 mg/dL (8.4-10.2); Hemolysis Index 26
[2021-08-19] MEDS ORDERED: REGADENOSON 0.4 MG/5 ML INJ IV ONE (09:09)
[2021-08-19] MEDS: AMIODARONE 200 MG TAB PO SCH ×2 (10:02→11:50)
[2021-08-19] MEDS: APIXABAN 5 MG TAB PO SCH ×2 (10:03→11:49)
[2021-08-19] MEDS: LOSARTAN 25 MG TAB PO SCH ×2 (10:03→11:50)
[2021-08-19] MEDS: FAMOTIDINE 20 MG TAB PO SCH ×2 (10:03→11:51)
[2021-08-19] MEDS ORDERED: METOPROLOL TARTRATE 50 MG TAB PO SCH (11:00)
[2021-08-19] MEDS: FUROSEMIDE 40 MG TAB PO SCH ×2 (11:03→11:50)
[2021-08-19 11:51] VITALS: BP 112/72
[2021-08-19] MEDS ORDERED: SPIRONOLACTONE 25 MG TAB PO SCH (13:00)
--- NOTE | 2021-08-19 13:44 | Discharge Summary ---
Providers - Providers Date of Admission: 08/13/21 17:29 Date of discharge: 08/19/21 Attending physician: JUAN CHARLES 08/13/21 15:04 Consult to Physician [CONS] Routine Comment: Consulting Provider: CORDELL VINCENT Physician Instructions: Reason For Exam: a-fib Primary care physician: SOLEDAD ANDERSON Hospitalization Condition: Stable Disposition: 30 STILL A PATIENT Final Discharge Diagnosis (Prints w/discharge instructions): New onset A. fib with RVR. Acute respiratory failure- resolved. Cardiomyopathy. Hypertension. History of B-cell lymphoma. History of sarcoidosis Time spent for discharge: 34 minutes Exam - Constitutional Vitals: Temp Pulse Resp BP Pulse Ox 97.6 F 70 20 112/72 93 08/19/21 11:08 08/19/21 11:08 08/19/21 05:00 08/19/21 11:50 08/19/21 11:08 Plan Activity: advance as tolerated Weight Bearing Status: Weight Bear as Tolerated Diet: low fat, low salt Follow up with: SOLEDAD ANDERSON MD [Primary Care Provider] - 7 Days Prescriptions: Spironolactone [Aldactone] 12.5 mg PO QDAY #30 tablet Amiodarone [Cordarone 200 MG TAB] 200 mg PO DAILY #60 tablet Losartan [Cozaar] 25 mg PO QDAY #90 tablet Apixaban [Eliquis] 5 mg PO Q12HR #60 tablet Furosemide [Lasix TAB] 40 mg PO QDAY #60 tablet Metoprolol [Lopressor TAB] 75 mg PO BID #90 tablet Famotidine [Pepcid] 20 mg PO BID #60 tablet
--- NOTE | 2021-08-19 14:25 | Progress Note ---
Assessment and Plan Patient is a 61-year-old male with past medical history of hypertension and B- cell lymphoma presents to the ED today with a complaint of shortness of breath which has been occurring since February however for the last month and a half patient reports that his symptoms have progressively worsened and found to be in A. fib with RVR New onset A. fib with RVR Acute respiratory failure- resolved Cardiomyopathy Hypertension History of B-cell lymphoma History of sarcoidosis Echo 08/13/2021-EF 20 to 25%. LV severely dilated. Moderate to severe concentric LVH. Left atrium severely dilated. Right ventricular systolic function is normal Lexiscan MPI stress test 08/19/21: Negative for acute ischemia Plan: Patient stress test today negative for acute ischemia. Patient with nonischemic cardiomyopathy. Patient remains in A. fib, however. SBP only 112 this afternoon and didn't receive metorolol. D/w primary and agreed on 75 mg metoprolol BID at discharge. Okay for discharge from cardiac standpoint. Continue GDMT outpatient to include: Amiodarone 200 mg daily, Eliquis 5 mg p.o. every 12 hours, Lasix 40 mg p.o. daily, losartan 25 mg p.o. daily, metoprolol 75 mg p.o. twice daily, and Aldactone 12.5 mg p.o. daily Follow-up outpatient 08/26/21 @ 1:[address] Rae Joe in [facility]. Instructions and education provided to family for medication compliance, BP monitoring, and importance of hospital follow up. Patient seen and examined with Dr. Macdonald who agrees with assessment and plan of care. - Patient Problems (1) Atrial fibrillation with RVR Current Visit: Yes Status: Acute (2) CHF (congestive heart failure) Current Visit: Yes Status: Acute Qualifiers: Heart failure type: systolic Heart failure chronicity: acute Qualified Code(s): I50.21 - Acute systolic (congestive) heart failure (3) Hypertension Current Visit: Yes Status: Acute Qualifiers: Hypertension type: primary hypertension Qualified Code(s): I10 - Essential (primary) hypertension (4) Obesity hypoventilation syndrome Current Visit: Yes Status: Acute (5) Respiratory failure with hypoxia Current Visit: Yes Status: Acute Qualifiers: Chronicity: acute Qualified Code(s): J96.01 - Acute respiratory failure with hypoxia Subjective Date of service: 08/19/21 Principal diagnosis: A. fib with RVR Interval history: Patient seen today hospital. No acute distress. Intake & Output 08/18/21 08/19/21 08/19/21 23:59 07:59 15:59 Intake Total 50 Balance 50 Objective Vital Signs Temp Pulse Resp BP BP Pulse Ox 08/19/21 14:01 92 08/19/21 11:50 112/72 08/19/21 11:08 97.6 F 70 112/76 93 08/19/21 10:05 144/78 08/19/21 10:03 153/84 08/19/21 10:02 159/75 08/19/21 10:00 149/68 93 08/19/21 09:58 118/90 08/19/21 09:39 131/84 08/19/21 08:00 87 08/19/21 07:50 97.9 F 84 127/72 92 08/19/21 05:00 99.2 F 71 20 136/83 99 08/19/21 00:00 98.9 F 68 18 120/62 96 08/18/21 22:32 97 08/18/21 20:23 98 08/18/21 20:19 61 08/18/21 19:15 98.3 F 86 18 124/80 85 08/18/21 14:30 98.0 F 61 18 114/82 88 - Physical Examination General: No Apparent Distress HEENT: Positive: Normocephaly Neck: Positive: trachea midline Cardiac: Positive: Reg Rate and Rhythm, S1/S2 Neuro: Positive: Grossly Intact Abdomen: Positive: Soft Skin: Negative: Rash, Suspicious Lesions, Ulceration Extremities: Present: upper extr. pulses. Absent: edema (trace) - Labs and Meds CBC 08/19/21 Range/Units 05:35 WBC 4.2 L (4.5-11.0) K/mm3 RBC 5.40 H (3.65-5.03) M/mm3 Hgb 15.0 (11.8-15.2) gm/dl Hct 46.3 H (35.5-45.6) % Plt Count 193 (140-440) K/mm3 Comprehensive Metabolic Panel 08/19/21 Range/Units 05:35 Sodium 146 H (137-145) mmol/L Potassium 3.6 (3.6-5.0) mmol/L Chloride 96.5 L (98-107) mmol/L Carbon Dioxide 37 H (22-30) mmol/L BUN 17 (9-20) mg/dL Creatinine 1.0 (0.8-1.3) mg/dL Glucose 121 H (75-100) mg/dL Calcium 9.2 (8.4-10.2) mg/dL - Imaging and Cardiology Nuclear stress test: report reviewed Echo: report reviewed
== END 2021-08-19 16:45 | disposition home or self-care (01) | DRG 291 ==
LOC: ED 11:07 → 4A 17:29
PROVIDERS: ADMIT Internal Medicine; ATTEND Internal Medicine
PROC: 4A02XM4 Measurement of Cardiac Total Activity, External Approach (ICD-10-PCS; principal; 2021-08-19)
PROC: 3E073KZ Introduction of Other Diagnostic Substance into Coronary Artery, Percutaneous Approach (ICD-10-PCS; 2021-08-19)
DX: I11.0 Hypertensive heart disease with heart failure (principal); I50.21 Acute systolic (congestive) heart failure; J96.00 Acute respiratory failure, unspecified whether with hypoxia or hypercapnia; C85.90 Non-Hodgkin lymphoma, unspecified, unspecified site; E66.2 Morbid (severe) obesity with alveolar hypoventilation; Z20.822 Contact with and (suspected) exposure to COVID-19; I48.91 Unspecified atrial fibrillation; D86.9 Sarcoidosis, unspecified; Z82.49 Family history of ischemic heart disease and other diseases of the circulatory system; Z83.3 Family history of diabetes mellitus; Z80.9 Family history of malignant neoplasm, unspecified; Z68.38 Body mass index [BMI] 38.0-38.9, adult
CPT/HCPCS: 36415; 71045; 78452; 80048; 80053; 81001; 82565; 83735; 83880; 84443; 84484; 85014; 85018; 85025; 85027; 85049; 85520; 85610; 85730; 93005; 93017; 93306; 93970; 94760; G0378; J3490; J7060; Q0162; A9502; C8929; J0282; J1644; J1650; J1940; J2785; J7030; U0003